=== PATIENT | male | born 1970 | race Hispanic/Latino ===

== ENCOUNTER 2017-12-24 10:34 | Emergency (ER) | payer BC ==
[2017-12-24 10:34] VITALS: BMI 28.5
== END 2017-12-24 11:25 | disposition left against medical advice (07) ==
LOC: ED 10:34
DX: Z02.89 Encounter for other administrative examinations (principal); Z48.02 Encounter for removal of sutures

== ENCOUNTER 2018-05-26 10:04 | Emergency (ER) | payer MEDICAID, OTHER ==
[2018-05-26 10:05] VITALS: BMI 28.5
--- NOTE | 2018-05-26 10:30 | ED PDOC ---
Arrival/HPI - General Historian: Patient - History of Present Illness Narrative History of Present Illness (Text): 05/26/18 10:25 47 year old male, with past medical history of hypertension, presents to the ED complaining of bilateral lower extremity edema and discomfort since 1 week. Patient informs worsening symptoms with palpation but denies any recent trauma or injury. As per patient, the presentation is similar to symptoms experienced 20 years ago but denies any further medical evaluation. Patient denies any other associated somatic complaints. Patient denies any fever, chills, nausea, vomiting, diarrhea, abdominal pain, chest pain, shortness of breath, changes in appetite, urinary symptoms, headache, dizziness, neck pain, back pain or any other complaints. PMD: NONE Time/Duration: 1 week Symptom Onset: Gradual Symptom Course: Unchanged Quality: Aching Activities at Onset: Light <Sury Norman - Last Filed: 05/26/18 17:02> <Salvador Servin - Last Filed: 05/26/18 17:13> - General Chief Complaint: Lower Extremity Problem/Injury Time Seen by Provider: 05/26/18 10:06 Past Medical History - Provider Review Nursing Documentation Reviewed: Yes - Infectious Disease Hx of Infectious Diseases: None - Tetanus Immunization Tetanus Immunization: Unknown - Cardiac Hx Cardiac Disorders: Yes Hx Hypertension: Yes - Pulmonary Hx Respiratory Disorders: No - Neurological Hx Neurological Disorder: Yes Hx Seizures: Yes - HEENT Hx HEENT Disorder: No - Renal Hx Renal Disorder: No - Endocrine/Metabolic Hx Endocrine Disorders: No - Hematological/Oncological Hx Blood Disorders: No Hx Blood Transfusions: No Hx Blood Transfusion Reaction: No - Integumentary Hx Dermatological Disorder: Yes Hx Cellulitis: Yes - Musculoskeletal/Rheumatological Hx Falls: Yes Hx Fractures: Yes (left ankle fx twice, r great toe fx, r 5th toe fx) - Gastrointestinal Hx Gastrointestinal Disorders: No - Genitourinary/Gynecological Hx Genitourinary Disorders: No - Psychiatric Hx Depression: No Hx Substance Use: No - Past Surgical History Past Surgical History: Non-Contributing - Surgical History Hx Cardiac Catheterization: Yes (with 1 stent placement) Hx Orthopedic Surgery: Yes Other/Comment: torn meniscus left knee and skin graft - Anesthesia Hx Anesthesia: Yes Hx Anesthesia Reactions: No Hx Malignant Hyperthermia: No - Suicidal Assessment Feels Threatened In Home Enviroment: No <Sury Norman - Last Filed: 05/26/18 17:02> Family/Social History - Physician Review Nursing Documentation Reviewed: Yes Family/Social History: Unknown Family HX Smoking Status: Never Smoked Hx Alcohol Use: No Hx Substance Use: No Hx Substance Use Treatment: No <Sury Norman Arnold - Last Filed: 05/26/18 17:02> Allergies/Home Meds <Sury Norman Arnold - Last Filed: 05/26/18 17:02> <GarethSalvador - Last Filed: 05/26/18 17:13> Allergies/Adverse Reactions: Allergies No Known Allergies Allergy (Verified 04/17/18 13:36) Home Medications: Home Meds Medication Instructions Recorded Confirmed RX: No Known Home Med 04/17/18 04/17/18 Review of Systems - Physician Review All systems were reviewed & negative as marked: Yes - Review of Systems Constitutional: absent: Fevers Respiratory: absent: SOB, Cough Cardiovascular: Edema (bilaterally lower extremity edema). absent: Chest Pain, MCHUGH Gastrointestinal: absent: Abdominal Pain, Diarrhea, Nausea, Vomiting Musculoskeletal: Other (bilateral lower extremity discomfort). absent: Back Pain, Neck Pain Skin: absent: Rash Neurological: absent: Headache, Dizziness Psychiatric: absent: Anxiety <Sury Norman T - Last Filed: 05/26/18 17:02> Physical Exam Vital Signs Reviewed: Yes Temperature: Afebrile Blood Pressure: Normal Pulse: Regular Respiratory Rate: Normal Appearance: Positive for: Well-Appearing, Non-Toxic, Comfortable Pain Distress: None Mental Status: Positive for: Alert and Oriented X 3 - Systems Exam Head: Present: Atraumatic, Normocephalic Mouth: Present: Moist Mucous Membranes Neck: Present: Normal Range of Motion Respiratory/Chest: Present: Clear to Auscultation, Good Air Exchange. No: Respiratory Distress, Accessory Muscle Use, Wheezes, Decreased Breath Sounds, Retracting, Rhonchi, Tachypneic Cardiovascular: Present: Regular Rate and Rhythm, Normal S1, S2. No: Murmurs Abdomen: No: Tenderness, Distention, Peritoneal Signs, Rebound, Guarding Back: Present: Normal Inspection Upper Extremity: Present: Normal Inspection. No: Cyanosis, Edema Lower Extremity: Present: Edema (2+ pitting edema ), CALF TENDERNESS, NORMAL PULSES, Normal ROM, Neurovascularly Intact, Capillary Refill < 2 s, Other (Sensation intact bilaterally ). No: Swelling, Erythema, Deformity, Temperature Abnormalties Neurological: Present: GCS=15, Speech Normal, Motor Func Grossly Intact, Normal Sensory Function, Gait Normal Skin: Present: Warm, Dry, Normal Color. No: Rashes Psychiatric: Present: Alert, Oriented x 3. No: Suicidal Ideation, Homicidal Ideation <Sury Norman - Last Filed: 05/26/18 17:02> Vital Signs Temp Pulse Resp BP Pulse Ox 05/26/18 13:38 99 05/26/18 13:26 137/80 05/26/18 12:16 88 18 129/80 99 05/26/18 10:24 98.2 F 96 H 18 130/89 99 <Salvador Servin - Last Filed: 05/26/18 17:13> Medical Decision Making ED Course and Treatment: 05/26/18 10:24 Impression: 47 year old male presents to the ED complaining of bilateral lower extremity swelling and discomfort. Plan: -- Labs -- Chest X-ray -- US of LE Progress Notes: 05/26/18 13:04 pt is non toxic well appearing; no distress. pt with hx of CHF. BNP 3120 which is greatly improved from last month at 10,000. cxr; wnl hgb;9.0 duplex; negative for dvt bilaterally. pt given PO lasix. advised patient of low hemoglobin and elevated BNP. 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 pt was advised that he must return if symptoms worsen,persist or if new symptoms develop. pt states he knows he has HIV and will f/u with the ID clinic [facility]. advised patient of severity of clinic. Patient verbalizes understanding of discharge instructions and need for immediate followup. all aspects of this case were discussed the attending of record. Impression: Pedal edema, anemia Follow-up with the primary care physician/clinic within the next 2 days Please Follow up with the Infectious disease clinic [facility]. Follow-up with the gimp buttonhole machine operator within the next 2 days Return immediately if symptoms worsen persist or if new concerning symptoms develop - RAD Interpretation Radiology Orders: 05/26/18 10:24 CHEST PORTABLE [RAD] Stat DUPLEX LOWER EXTRM VEIN BILAT [US] Stat <Sury Norman - Last Filed: 05/26/18 17:02> - Lab Interpretations Lab Results: 05/26/18 10:50 05/26/18 12:00 Lab Results 05/26/18 12:00: Sodium 139, Potassium 4.5, Chloride 102, Carbon Dioxide 27, Anion Gap 15, BUN 21, Creatinine 0.6 L, Est GFR ( Amer) > 60, Est GFR (Non-Af Amer) > 60, Random Glucose 85, Calcium 8.5, Total Bilirubin 0.5, AST 48, ALT 27, Alkaline Phosphatase 89, NT-Pro-B Natriuret Pep 3120 H, Total Protein 8.8 H, Albumin 3.5, Globulin 0.7, Albumin/Globulin Ratio 5.0 H 05/26/18 10:50: WBC 3.0 L, RBC 3.50, Hgb 9.0 L, Hct 29.3 L, MCV 83.7, MCH 25.7, MCHC 30.7 L, RDW 16.2 H, Plt Count 210, MPV 9.7, Gran % 55.4, Lymph % (Auto) 35.6 H, Murray % (Auto) 8.3 H, Eos % (Auto) 0.7 L, Baso % (Auto) 0.0, Gran # 1.68, Lymph # (Auto) 1.1 L, Murray # (Auto) 0.3, Eos # (Auto) 0.0, Baso # (Auto) 0.00 - RAD Interpretation Radiology Orders: 05/26/18 10:24 CHEST PORTABLE [RAD] Stat DUPLEX LOWER EXTRM VEIN BILAT [US] Stat - Medication Orders Current Medication Orders: Discontinued Medications Furosemide (Lasix) 20 mg PO STAT STA Stop: 05/26/18 12:59 Last Admin: 05/26/18 13:26 Dose: 20 mg MAR Blood Pressure Document 05/26/18 13:26 LEANN (Rec: 05/26/18 13:26 LEANN [id number]) Blood Pressure Blood Pressure (100/60-150/90) 137/80 <Salvador Servin - Last Filed: 05/26/18 17:13> - PA / BROOMMAKER / Resident Statement YARELY has reviewed & agrees with the documentation as recorded. / has examined the patient and agrees with the treatment plan. - Scribe Statement The provider has reviewed the documentation as recorded by the Humzaibe Sang Toscano. All medical record entries made by the Humzaibbob were at my direction and personally dictated by me. I have reviewed the chart and agree that the record accurately reflects my personal performance of the history, physical exam, medical decision making, and the department course for this patient. I have also personally directed, reviewed, and agree with the discharge instructions and di sposition. <Sury Norman - Last Filed: 05/26/18 17:02> - PA / BROOMMAKER / Resident Statement MD/ has reviewed & agrees with the documentation as recorded. <Salvador Servin - Last Filed: 05/26/18 17:13> Disposition/Present on Arrival - Present on Arrival Any Indicators Present on Arrival: No History of DVT/PE: No History of Uncontrolled Diabetes: No Urinary Catheter: No History of Decub. Ulcer: No History Surgical Site Infection Following: None - Disposition Have Diagnosis and Disposition been Completed?: Yes Disposition Time: 12:00 Patient Plan: Discharge <Sury Norman - Last Filed: 05/26/18 17:02> <Salvador Servin - Last Filed: 05/26/18 17:13> - Disposition Diagnosis: Pedal edema, Anemia Disposition: HOME/ ROUTINE Condition: GOOD Additional Instructions: Follow-up with the primary care physician/clinic within the next 2 days Please Follow up with the Infectious disease clinic [facility]. Follow-up with the gimp buttonhole machine operator within the next 2 days Return immediately if symptoms worsen persist or if new concerning symptoms develop Referrals: Joshua Majano MD [Staff Provider] - Follow up with primary Melvi Bustamante MD [Medical Doctor] - Follow up with primary [facility] [Outside] - Follow up with primary Johnathon Razo MD [Staff Provider] - Follow up with primary Forms: [employer] (Malawian)
[2018-05-26 10:31] VITALS: RESP 18; TEMP 98.2; O2SAT 99
[2018-05-26 10:59] LABS: EOS % 0.7 % (1.5-5.0); GRAN # 1.68 (1.4-6.5); GRAN % 55.4 % (50.0-68.0); LYMPH # 1.1 (1.2-3.4); LYMPH % 35.6 % (22.0-35.0); MEAN CELL VOLUME 83.7 fl (80.0-105.0); MEAN CORPUSCULAR HEMOGLOBIN 25.7 pg (25.0-35.0); MEAN CORPUSCULAR HGB CONC 30.7 g/dl (31.0-37.0); MEAN PLATELET VOLUME 9.7 fl (7.0-11.0); MONO # 0.3 (0.1-0.6); MONO % 8.3 % (1.0-6.0); RBC 3.5 10^6/uL (3.5-6.1); RED CELL DISTRIBUTION WIDTH 16.2 % (11.5-14.5)
--- NOTE | 2018-05-26 11:32 | US ---
HISTORY: Leg pain and swelling. Evaluate for DVT PHYSICIAN(S): Scott Sood MD. TECHNIQUE: Duplex sonography and color-flow Doppler with graded compression were used to evaluate the deep venous systems of both lower extremities. FINDINGS: The visualized deep venous systems of both lower extremities are sonographically normal and compressible. Normal wave forms and augmentation are seen. There is no sonographic evidence for deep venous thrombosis in the visualized segments of both lower extremities. IMPRESSION: No sonographic evidence for deep venous thrombosis in the visualized segments of both lower extremities.
--- NOTE | 2018-05-26 11:36 | RAD ---
Date of service: 05/26/2018 HISTORY: lower leg swelling COMPARISON: 03/19/2013 FINDINGS: LUNGS: No active pulmonary disease. PLEURA: No significant pleural effusion identified, no pneumothorax apparent. CARDIOVASCULAR: No acute findings Mild cardiomegaly no pulmonary vascular congestion. OSSEOUS STRUCTURES: No significant abnormalities. VISUALIZED UPPER ABDOMEN: Normal. OTHER FINDINGS: None. IMPRESSION: No active disease.
[2018-05-26 12:50] LABS: ALBUMIN 3.5 g/dL (3.0-4.8); BLOOD UREA NITROGEN 21 mg/dL (7-21); CALCIUM 8.5 mg/dL (8.4-10.5); GFR NON-AFRICAN AMERICAN > 60
[2018-05-26 12:51] LABS: ALT/SGPT 27 U/L (7-56); AST/SGOT 48 U/L (17-59); B-TYPE NATRIURETIC PEPTIDE 3120 pg/mL (0-450)
[2018-05-26 13:26] VITALS: BP 137/80
[2018-05-26 13:41] VITALS: PULSE 88
== END 2018-05-26 13:40 | disposition home or self-care (01) ==
LOC: ED 10:04
DX: R60.0 Localized edema (principal); D64.9 Anemia, unspecified; I10 Essential (primary) hypertension

== ENCOUNTER 2018-06-09 03:49 | Emergency (ER) | payer MEDICAID, OTHER ==
[2018-06-09 03:49] VITALS: BMI 28.5
[2018-06-09 04:01] VITALS: O2SAT 100
[2018-06-09 04:11] VITALS: PULSE 98; RESP 20; TEMP 97.4
[2018-06-09 04:34] VITALS: BP 138/98
--- NOTE | 2018-06-09 04:54 | ED PDOC ---
Arrival/HPI - General Chief Complaint: Lower Extremity Problem/Injury Time Seen by Provider: 06/09/18 03:57 Historian: Patient - History of Present Illness Narrative History of Present Illness (Text): 06/09/18 03:58 47 year old male, whose past medical history includes HIV, presents to the emergency department with red lower leg swelling, for 20 years. Patient states he was seen here 2 weeks ago for the the same symptoms. Patient states he was given Lasix, which he states he ran out of. Patient informs he is scheduled for an appointment with his infectious disease doctor for HIV medication. Patient denies any fever, cough, chest pain, shortness of breath, or any other complaints. Time/Duration: Other (Symptoms for 20 years) Past Medical History - Provider Review Nursing Documentation Reviewed: Yes - Infectious Disease Hx of Infectious Diseases: None - Tetanus Immunization Tetanus Immunization: Unknown - Cardiac Hx Cardiac Disorders: Yes Hx Hypertension: Yes - Pulmonary Hx Respiratory Disorders: No - Neurological Hx Neurological Disorder: Yes Hx Seizures: Yes - HEENT Hx HEENT Disorder: No - Renal Hx Renal Disorder: No - Endocrine/Metabolic Hx Endocrine Disorders: No - Hematological/Oncological Hx Blood Disorders: No Hx Blood Transfusions: No Hx Blood Transfusion Reaction: No - Integumentary Hx Dermatological Disorder: Yes Hx Cellulitis: Yes - Musculoskeletal/Rheumatological Hx Falls: Yes Hx Fractures: Yes (left ankle fx twice, r great toe fx, r 5th toe fx) - Gastrointestinal Hx Gastrointestinal Disorders: No - Genitourinary/Gynecological Hx Genitourinary Disorders: No - Psychiatric Hx Depression: No Hx Substance Use: No - Past Surgical History Past Surgical History: Non-Contributing - Surgical History Hx Cardiac Catheterization: Yes (with 1 stent placement) Hx Orthopedic Surgery: Yes Other/Comment: torn meniscus left knee and skin graft - Anesthesia Hx Anesthesia: Yes Hx Anesthesia Reactions: No Hx Malignant Hyperthermia: No - Suicidal Assessment Feels Threatened In Home Enviroment: No Family/Social History - Physician Review Nursing Documentation Reviewed: Yes Family/Social History: No Known Family HX Smoking Status: Never Smoked Hx Alcohol Use: Yes Frequency of alcohol use: Socially Hx Substance Use: No Hx Substance Use Treatment: No Allergies/Home Meds Allergies/Adverse Reactions: Allergies No Known Allergies Allergy (Verified 06/09/18 04:01) Review of Systems - Physician Review All systems were reviewed & negative as marked: Yes - Review of Systems Constitutional: absent: Fevers Respiratory: absent: SOB, Cough Cardiovascular: absent: Chest Pain Skin: Other (Bilateral Lower Ext Swelling and Redness) Physical Exam Vital Signs Reviewed: Yes Vital Signs Temp Pulse Resp BP Pulse Ox 06/09/18 04:34 138/98 H 06/09/18 04:10 97.4 F L 98 H 20 139/98 H 100 06/09/18 04:01 98.6 F 97 H 18 136/89 100 Temperature: Afebrile Blood Pressure: Normal Pulse: Tachycardic Respiratory Rate: Normal Appearance: Positive for: Well-Appearing, Non-Toxic, Comfortable Pain Distress: None Mental Status: Positive for: Alert and Oriented X 3 - Systems Exam Head: Present: Atraumatic, Normocephalic Pupils: Present: PERRL Extroacular Muscles: Present: EOMI Conjunctiva: Present: Normal Mouth: Present: Moist Mucous Membranes Neck: Present: Normal Range of Motion Respiratory/Chest: Present: Clear to Auscultation, Good Air Exchange. No: Respiratory Distress, Accessory Muscle Use Cardiovascular: Present: Regular Rate and Rhythm, Normal S1, S2. No: Murmurs Abdomen: No: Tenderness, Distention, Peritoneal Signs Back: Present: Normal Inspection Upper Extremity: Present: Normal Inspection. No: Cyanosis, Edema Lower Extremity: Present: Edema (1+ pitting edema bilaterally) Neurological: Present: GCS=15, CN II-XII Intact, Speech Normal Skin: Present: Warm, Dry, Normal Color. No: Rashes Psychiatric: Present: Alert, Oriented x 3, Normal Insight, Normal Concentration Medical Decision Making ED Course and Treatment: 06/09/18 04:03 Impression: 47 year old male presents with leg swelling and redness. Plan: -- Lasix -- Reassess and disposition Prior Visits: Notes and results from previous visits were reviewed. Progress Notes: - Medication Orders Current Medication Orders: Discontinued Medications Furosemide (Lasix) 20 mg PO STAT STA Stop: 06/09/18 04:25 Last Admin: 06/09/18 04:34 Dose: 20 mg MAR Blood Pressure Document 06/09/18 04:34 SS (Rec: 06/09/18 04:34 SS [facility] [id number]) Blood Pressure Blood Pressure (100/60-150/90) 138/98 - Scribe Statement The provider has reviewed the documentation as recorded by the Scribe Scott Osbaldo Provider Petra Attestation: All medical record entries made by the Petra were at my direction and personally dictated by me. I have reviewed the chart and agree that the record accurately reflects my personal performance of the history, physical exam, medical decision making, and the department course for this patient. I have also personally directed, reviewed, and agree with the discharge instructions and disposition. Disposition/Present on Arrival - Present on Arrival Any Indicators Present on Arrival: No History of DVT/PE: No History of Uncontrolled Diabetes: No Urinary Catheter: No History of Decub. Ulcer: No History Surgical Site Infection Following: None - Disposition Have Diagnosis and Disposition been Completed?: Yes Diagnosis: Leg edema Disposition: HOME/ ROUTINE Disposition Time: 04:20 Patient Problems: Current Active Problems Problem Status Onset Leg edema Acute Condition: GOOD Discharge Instructions (ExitCare): Dependent Edema (DC) Additional Instructions: BIBIANA ERNST, thank you for letting us take care of you today. The emergency medical care you received today was directed at your acute symptoms. If you were prescribed any medication, please fill it and take as directed. It may take several days for your symptoms to resolve. Return to the Emergency Department if your symptoms worsen, do not improve, or if you have any other problems. Please contact your doctor or call one of the physicians/clinics you have been referred to that are listed on the Patient Visit Information form that is included in your discharge packet. Bring any paperwork you were given at discharge with you along with any medications you are taking to your follow up visit. Our treatment cannot replace ongoing medical care by a primary care provider outside of the emergency department. Thank you for allowing the [facility] team to be part of your care today. Follow up with your primary care doctor and the infectious disease doctor as scheduled for re-evaluation and further management. Prescriptions: Furosemide [Lasix] 20 mg PO DAILY #14 tab Forms: [employer] (Greek)
[2018-06-09] MEDS ORDERED: Dextrose 50% SYRINGE Inj (50 ml) ONE (10:23)
== END 2018-06-09 06:10 | disposition home or self-care (01) ==
LOC: ED 03:49
DX: R60.0 Localized edema (principal)

== ENCOUNTER 2018-06-10 02:29 | Emergency (ER) | payer MEDICAID ==
[2018-06-10 02:29] VITALS: BMI 28.5
[2018-06-10 02:45] VITALS: TEMP 97.4
--- NOTE | 2018-06-10 03:14 | ED PDOC ---
Arrival/HPI - General Historian: Patient - History of Present Illness Narrative History of Present Illness (Text): 06/10/18 03:07 47 y o male past medical history of hypertension, HIV, presents complaining b/l lower leg swelling x 2 weeks. Pt was recently seen in [facility] department 24 hrs earlier for similar chief complaint. When I asked pt about that visit, pt stated he did not recall being in this ER 24 hrs ago, stated that he was in the ER several days ago for this issue. States he took his Furosemide for the last 2 days because his legs were swelling. He states that he got his prescription for Lasix 2 weeks ago in the Emergency room Pt states he came to the Emergency department because he was trying to get to [place] and could not because the buses stopped running tonight. Pt states he was on [employer] [place] well trying to get to [place] and states he was kicked off the train. Was brought in by ambulance, but was observed walking around Emergency department prior to being examined without concerns/pain. When questioned initially, pt stated that he only had b/l lower leg swelling without pain, but then proceeded to change his story 10 mins later and stated that he had pain. Denies color changes or rash to affected leg. Denies headache, lightheadedness/dizziness, weakness, chest pain, sob, nausea, vomiting, diarrhea, constipation, abd pain, urinary complaints, or other symptoms. Past medical history: hypertension, HIV Past surg hx: denies Allergies: NKDA Meds: Furosemide 20 mg PO daily Fam hx: denies, noncontributory Soc hx: denies smoking, EtOH, or illicit drug use; per chart review, pt has hx cocaine abuse PMD: states he sees PCP in [facility] (does not remember name), states last saw him 3 mos ago <Mirza Arroyo - Last Filed: 06/10/18 03:28> - History of Present Illness Time/Duration: Other (2 weeks) Symptom Onset: Gradual Symptom Course: Unchanged Activities at Onset: Light <Edmund Benavides - Last Filed: 06/10/18 04:02> - General Chief Complaint: Lower Extremity Problem/Injury Past Medical History - Infectious Disease Hx of Infectious Diseases: None - Tetanus Immunization Tetanus Immunization: Unknown - Cardiac Hx Cardiac Disorders: Yes Hx Hypertension: Yes - Pulmonary Hx Respiratory Disorders: No - Neurological Hx Neurological Disorder: Yes Hx Seizures: Yes - HEENT Hx HEENT Disorder: No - Renal Hx Renal Disorder: No - Endocrine/Metabolic Hx Endocrine Disorders: No - Hematological/Oncological Hx Blood Disorders: No Hx Blood Transfusions: No Hx Blood Transfusion Reaction: No - Integumentary Hx Dermatological Disorder: Yes Hx Cellulitis: Yes - Musculoskeletal/Rheumatological Hx Musculoskeletal Disorders: Yes Hx Falls: Yes Hx Fractures: Yes (left ankle fx twice, r great toe fx, r 5th toe fx) - Gastrointestinal Hx Gastrointestinal Disorders: No - Genitourinary/Gynecological Hx Genitourinary Disorders: No - Psychiatric Hx Depression: No Hx Substance Use: No - Past Surgical History Past Surgical History: Non-Contributing - Surgical History Hx Cardiac Catheterization: Yes (with 1 stent placement) Hx Orthopedic Surgery: Yes Other/Comment: torn meniscus left knee and skin graft - Anesthesia Hx Anesthesia: Yes Hx Anesthesia Reactions: No Hx Malignant Hyperthermia: No - Suicidal Assessment Feels Threatened In Home Enviroment: No <Mirza Arroyo - Last Filed: 06/10/18 03:28> - Provider Review Nursing Documentation Reviewed: Yes <Edmund Benavides - Last Filed: 06/10/18 04:02> Family/Social History Family/Social History: No Known Family HX Smoking Status: Never Smoked Hx Alcohol Use: Yes Frequency of alcohol use: Socially Hx Substance Use: No Hx Substance Use Treatment: No <Mirza Arroyo - Last Filed: 06/10/18 03:28> - Physician Review Nursing Documentation Reviewed: Yes <Edmund Benavides - Last Filed: 06/10/18 04:02> Allergies/Home Meds <Mirza Arroyo - Last Filed: 06/10/18 03:28> <Edmund Benavides - Last Filed: 06/10/18 04:02> Allergies/Adverse Reactions: Allergies No Known Allergies Allergy (Verified 06/09/18 04:01) Home Medications: Home Meds Medication Instructions Recorded Confirmed Naproxen Sodium [Aleve] 220 mg PO Q6 PRN 06/10/18 06/10/18 Review of Systems - Review of Systems Constitutional: absent: Weight Change, Fevers, Night Sweats Eyes: absent: Vision Changes Respiratory: absent: SOB, Cough, Wheezing Cardiovascular: Edema. absent: Chest Pain, Palpitations, Calf Pain, MCHUGH, Orthopnea, Syncope Gastrointestinal: absent: Abdominal Pain, Stool Changes, Constipation, Diarrhea, Nausea, Vomiting Musculoskeletal: Joint Swelling. absent: Back Pain, Myalgias Skin: absent: Rash, Pruritis Neurological: absent: Headache, Dizziness, Gait Changes <DinaMirza - Last Filed: 06/10/18 03:28> - Physician Review All systems were reviewed & negative as marked: Yes <Edmund Benavides - Last Filed: 06/10/18 04:02> Physical Exam Vital Signs Reviewed: Yes Vital Signs Temp Pulse Resp BP Pulse Ox 06/10/18 02:42 97.4 F L 100 H 18 151/102 H 93 L Temperature: Afebrile Blood Pressure: Hypertensive Pulse: Tachycardic Respiratory Rate: Normal Appearance: Positive for: Well-Appearing, Non-Toxic, Comfortable Pain Distress: None Mental Status: Positive for: Alert and Oriented X 3 - Systems Exam Head: Present: Atraumatic, Normocephalic Pupils: Present: PERRL Extroacular Muscles: Present: EOMI Conjunctiva: Present: Normal Mouth: Present: Moist Mucous Membranes Neck: Present: Normal Range of Motion. No: Paraspinal Tenderness, JVD, Lymp hadenopathy Respiratory/Chest: Present: Clear to Auscultation, Good Air Exchange. No: Respiratory Distress, Accessory Muscle Use, Wheezes, Rales, Rhonchi Cardiovascular: Present: Regular Rate and Rhythm, Normal S1, S2. No: Murmurs, Rub, Gallop Abdomen: Present: Normal Bowel Sounds. No: Tenderness, Distention, Rebound, Ma ss/Organomegaly Lower Extremity: Present: Edema (1+ pitting edema b/l), NORMAL PULSES, Normal ROM. No: CALF TENDERNESS, Cyanosis, Keyanna's Sign, Erythema Neurological: Present: GCS=15, CN II-XII Intact, Speech Normal, Motor Func Grossly Intact, Normal Sensory Function, Normal Cerebellar Funct, Norm Deep Tendon Reflexes, Gait Normal Skin: Present: Warm, Dry, Normal Color. No: Rashes Psychiatric: Present: Alert, Oriented x 3 <DinaMirza - Last Filed: 06/10/18 03:28> Vital Signs Temp Pulse Resp BP Pulse Ox 06/10/18 02:42 97.4 F L 100 H 18 151/102 H 93 L <Edmund Benavides Last Filed: 06/10/18 04:02> Medical Decision Making ED Course and Treatment: 06/10/18 03:17 Discussed with pt that b/l LE edema is likely a chronic issue, instructed pt that he needs to take his Lasix daily even when he does not have LE edema. Pt medically stable for discharge to home. Instructed pt that he needs to follow regularly with his PCP for blood pressure checks and management of his LE edema. Per chart review, pt stated in prior encounter that he has had LE edema for 20 years. Reviewed prior Emergency department encounters. Pt has prescription of Lasix recently refilled by Emergency department staff in prior encounter. <Mirza Arroyo - Last Filed: 06/10/18 03:28> ED Course and Treatment: Patient Seen with Provider In agreement with resident note which contains more details about the patient. Patient seen and evaluated with resident. Came up with plan and treatment together. 47 year old male presents complaining of bilateral lower leg swelling 2 weeks ago. Patient was seen yesterday for similar complaints, but does not recall. Plan: -- Disposition <Edmund Benavides - Last Filed: 06/10/18 04:02> - PA / KITCHEN STEWARDESS / Resident Statement MD/ has reviewed & agrees with the documentation as recorded. MD/DO has examined the patient and agrees with the treatment plan. - Scribe Statement The provider has reviewed the documentation as recorded by the Petra Stein Provider Scribe Attestation: All medical record entries made by the Petra were at my direction and personally dictated by me. I have reviewed the chart and agree that the record accurately reflects my personal performance of the history, physical exam, medical decision making, and the department course for this patient. I have also personally directed, reviewed, and agree with the discharge instructions and disposition. <Edmund Benavides - Last Filed: 06/10/18 04:02> Disposition/Present on Arrival - Present on Arrival Any Indicators Present on Arrival: No History of DVT/PE: No History of Uncontrolled Diabetes: No Urinary Catheter: No History of Decub. Ulcer: No History Surgical Site Infection Following: None - Disposition Have Diagnosis and Disposition been Completed?: Yes Disposition Time: 03:20 Patient Plan: Discharge <Mirza Arroyo - Last Filed: 06/10/18 03:28> <Edmund Benavides - Last Filed: 06/10/18 04:02> - Disposition Diagnosis: Bilateral lower extremity edema Disposition: HOME/ ROUTINE Patient Problems: Current Active Problems Problem Status Onset Bilateral lower extremity edema Acute Condition: GOOD Discharge Instructions (ExitCare): Dependent Edema (DC) Print Language: LATVIAN Additional Instructions: Please follow-up with [facility] (Dr. Bustamante) within 2-3 days of hospital discharge. Please resume home medication (Furosemide 20 mg daily); take medication even when you do not have LE edema unless instructed by your doctor. Should symptoms recur or worsen, please call your primary care physician or report to your nearest emergency department. Referrals: Melvi Bustamante MD [Medical Doctor] - Follow up with primary Forms: Melon (Swiss)
[2018-06-10 04:21] VITALS: BP 149/89; PULSE 88; RESP 16; O2SAT 97
== END 2018-06-10 04:19 | disposition home or self-care (01) ==
LOC: ED 02:29
DX: R60.0 Localized edema (principal)

== ENCOUNTER 2018-07-30 02:17 | Observation (INO) | payer MEDICAID, BC ==
[2018-07-30 02:18] VITALS: BMI 25.0
--- NOTE | 2018-07-30 02:28 | ED PDOC ---
Arrival/HPI - General Time Seen by Provider: 07/30/18 02:19 Historian: Patient - History of Present Illness Narrative History of Present Illness (Text): 07/30/18 02:27 Michael Hines is a 47 year old male, whose past medical history includes hypertension and HIV, who presents to the emergency department complaining of nausea and vomiting. Patient states he had nausea, vomiting, and diarrhea earlier in the day, which resolved on their own, but he wanted was concerned and came in for further evaluation. Patient was seen at [facility] twice yesterday for similar symptoms and discharged. Patient denies any somatic complaints currently. Past Medical History - Provider Review Nursing Documentation Reviewed: Yes - Infectious Disease Hx of Infectious Diseases: None - Tetanus Immunization Tetanus Immunization: Unknown - Cardiac Hx Coronary Artery Disease: Yes Hx Congestive Heart Failure: Yes Hx Hypertension: Yes - Pulmonary Hx Bronchitis: Yes Hx Pneumonia: Yes - Neurological Hx Seizures: Yes - HEENT Hx HEENT Disorder: No - Renal Hx Renal Disorder: No - Endocrine/Metabolic Hx Endocrine Disorders: No - Hematological/Oncological Hx Blood Disorders: Yes - Integumentary Hx Dermatological Disorder: Yes Hx Cellulitis: Yes - Musculoskeletal/Rheumatological Hx Fractures: Yes (left ankle fx twice, r great toe fx, r 5th toe fx) - Gastrointestinal Hx Gastrointestinal Disorders: No - Genitourinary/Gynecological Hx Genitourinary Disorders: No - Psychiatric Hx Depression: No Hx Substance Use: Yes (Cocaine/marijuana in the past.) - Past Surgical History Past Surgical History: Non-Contributing - Surgical History Hx Cardiac Catheterization: Yes (with 1 stent placement) Hx Orthopedic Surgery: Yes Other/Comment: torn meniscus left knee and skin graft - Anesthesia Hx Anesthesia: Yes Hx Anesthesia Reactions: No Hx Malignant Hyperthermia: No - Suicidal Assessment Feels Threatened In Home Enviroment: No Family/Social History - Physician Review Nursing Documentation Reviewed: Yes Family/Social History: Unknown Family HX Smoking Status: Never Smoked Hx Alcohol Use: Yes Hx Substance Use: Yes (Cocaine/marijuana in the past.) Hx Substance Use Treatment: No Allergies/Home Meds Allergies/Adverse Reactions: Allergies No Known Allergies Allergy (Verified 07/30/18 02:25) Review of Systems - Physician Review All systems were reviewed & negative as marked: Yes - Review of Systems Constitutional: Normal. absent: Fevers Eyes: Normal ENT: Normal Respiratory: Normal. absent: SOB, Cough Cardiovascular: Normal. absent: Chest Pain Gastrointestinal: Diarrhea, Nausea, Vomiting Genitourinary Male: Normal. absent: Dysuria, Frequency, Hematuria, Urinary Output Changes Musculoskeletal: Normal. absent: Back Pain, Neck Pain Skin: Normal. absent: Rash Neurological: Normal. absent: Headache, Dizziness Endocrine: Normal Hemo/Lymphatic: Normal Psychiatric: Normal Physical Exam Vital Signs Reviewed: Yes Temperature: Afebrile Blood Pressure: Normal Pulse: Regular Respiratory Rate: Normal Appearance: Positive for: Well-Appearing, Non-Toxic, Comfortable Pain Distress: None Mental Status: Positive for: Alert and Oriented X 3 - Systems Exam Head: Present: Atraumatic, Normocephalic Pupils: Present: PERRL Extroacular Muscles: Present: EOMI Conjunctiva: Present: Normal Mouth: Present: Moist Mucous Membranes Neck: Present: Normal Range of Motion Respiratory/Chest: Present: Clear to Auscultation, Good Air Exchange. No: Respiratory Distress, Accessory Muscle Use Cardiovascular: Present: Regular Rate and Rhythm, Normal S1, S2. No: Murmurs Abdomen: No: Tenderness, Distention, Peritoneal Signs Back: Present: Normal Inspection Upper Extremity: Present: Normal Inspection. No: Cyanosis, Edema Lower Extremity: Present: Normal Inspection. No: Edema Neurological: Present: GCS=15, CN II-XII Intact, Speech Normal Skin: Present: Warm, Dry, Normal Color. No: Rashes Psychiatric: Present: Alert, Oriented x 3, Normal Insight, Normal Concentration Medical Decision Making ED Course and Treatment: 07/30/18 02:27 Impression: 47 year old male complaining of nausea, vomiting, and diarrhea. Plan: -- EKG -- CXR -- Labs, cardiac enzymes, amylase, lipase -- UA -- IV fluids -- Reassess and disposition Prior Visits: Notes and results from previous visits were reviewed. Progress Notes: Reviewed EKG, NSR at 87 bpm[address] Non-specific ST/T wave changes. 07/30/18 04:25 CXR reviewed, shows no acute processes. 07/30/18 04:30 Case discussed with medical diagnostic radiographer director of consumer marketing, who is aware and agrees with plan. 07/30/18 04:[address] Black, who is aware and agrees with plan. Accepts pt in to hospitalist service. Pt will go to [facility] observation for dehydration. - Lab Interpretations I have reviewed the lab results: Yes - RAD Interpretation Operations General Agent: ED Physician - EKG Interpretation Interpreted by ED Physician: Yes Type: 12 lead EKG - Scribe Statement The provider has reviewed the documentation as recorded by the Petra Funez Provider Scribe Attestation: All medical record entries made by the Scribe were at my direction and personally dictated by me. I have reviewed the chart and agree that the record accurately reflects my personal performance of the history, physical exam, medical decision making, and the department course for this patient. I have also personally directed, reviewed, and agree with the discharge instructions and disposition. Disposition/Present on Arrival - Present on Arrival Any Indicators Present on Arrival: No History of DVT/PE: No History of Uncontrolled Diabetes: No Urinary Catheter: No History Surgical Site Infection Following: None - Disposition Have Diagnosis and Disposition been Completed?: Yes Diagnosis: Dehydration Disposition: HOSPITALIZED Disposition Time: 04:25 Condition: GOOD
[2018-07-30] MEDS ORDERED: Sodium Chloride 0.9% 1,000 ML IV SCH ×3 (02:30→09:45)
[2018-07-30 04:16] LABS: INR 1.01; PARTIAL THROMBOPLASTIN TIME 34.3 Seconds (25.1-36.5); PROTHROMBIN TIME 11.5 SECONDS (9.4-12.5)
[2018-07-30 04:18] LABS: BASO % 0.2 % (0.0-3.0); EOS % 1.2 % (1.5-5.0); GRAN # 2.27 (1.4-6.5); GRAN % 53.3 % (50.0-68.0); HEMOGLOBIN 9.1 g/dL (14.0-18.0); LYMPH % 39.4 % (22.0-35.0); MEAN CELL VOLUME 82.8 fl (80.0-105.0); MEAN CORPUSCULAR HEMOGLOBIN 24.4 pg (25.0-35.0); MEAN CORPUSCULAR HGB CONC 29.4 g/dl (31.0-37.0); MEAN PLATELET VOLUME 10.1 fl (7.0-11.0); MONO % 5.9 % (1.0-6.0); RBC 3.73 10^6/uL (3.5-6.1); RED CELL DISTRIBUTION WIDTH 16.9 % (11.5-14.5); WHITE BLOOD COUNT 4.3 10^3/uL (4.5-11.0)
[2018-07-30 04:19] LABS: BASO # 0.01 K/mm3 (0.0-2.0); EOS # 0.1 (0.0-0.7); LYMPH # 1.7 (1.2-3.4); MONO # 0.3 (0.1-0.6)
[2018-07-30 04:20] LABS: ALB/GLOB RATIO 0.7 (1.1-1.8); ALBUMIN 3.9 g/dL (3.0-4.8); ALT/SGPT 37 U/L (7-56); AMYLASE 105 U/L (35-125); AST/SGOT 57 U/L (17-59); BLOOD UREA NITROGEN 55 mg/dL (7-21); CALCIUM 9.4 mg/dL (8.4-10.5); GFR NON-AFRICAN AMERICAN > 60; LIPASE 430 U/L (23-300)
[2018-07-30 04:31] LABS: TROPONIN I 0.01 ng/mL
--- NOTE | 2018-07-30 04:56 | CP.PCM.HP ---
History of Present Illness - History of Present Illness History of Present Illness: PGY-[address] H&P for [address] Black CC: Nausea, vomiting, and diarrhea Michael Hines is a 47 year old male, whose past medical history includes h ypertension and HIV, who presents to the emergency department complaining of nausea and vomiting. Patient states he had nausea, vomiting, and diarrhea earlier in the day, which resolved on their own, but he wanted was concerned and came in for further evaluation. Patient was seen at [facility] twice yesterday for similar symptoms and discharged. Patient denies any somatic complaints currently. 12 system ROS reviewed and negative except mentioned in HPI. PMHx: uncontrolled HTN, seizures, multiple fractures (left ankle, right great toe, right 5th toe) SurgHx: torn meniscus left knee and skin graft FMHx: denies SocHx: cocaine abuse, homeless (stays at alf) Medications: no home meds Allergies: NKDA PMD: none Past Patient History - Infectious Disease Hx of Infectious Diseases: None - Tetanus Immunizations Tetanus Immunization: Unknown - Past Social History Smoking Status: Never Smoked - CARDIAC Hx Congestive Heart Failure: Yes Hx Hypertension: Yes - PULMONARY Hx Bronchitis: Yes Hx Pneumonia: Yes - NEUROLOGICAL Hx Seizures: Yes - HEENT Hx HEENT Problems: No - RENAL Hx Chronic Kidney Disease: No - ENDOCRINE/METABOLIC Hx Endocrine Disorders: No - HEMATOLOGICAL/ONCOLOGICAL Hx Blood Disorders: Yes - INTEGUMENTARY Hx Dermatological Problems: Yes Hx Cellulitis: Yes - MUSCULOSKELETAL/RHEUMATOLOGICAL Hx Fractures: Yes (left ankle fx twice, r great toe fx, r 5th toe fx) - GASTROINTESTINAL Hx Gastrointestinal Disorders: No - GENITOURINARY/GYNECOLOGICAL Hx Genitourinary Disorders: No - PSYCHIATRIC Hx Depression: No Hx Substance Use: Yes (Cocaine/marijuana in the past.) - SURGICAL HISTORY Hx Cardiac Catheterization: Yes (with 1 stent placement) Hx Orthopedic Surgery: Yes Other/Comment: torn meniscus left knee and skin graft - ANESTHESIA Hx Anesthesia: Yes Hx Anesthesia Reactions: No Hx Malignant Hyperthermia: No Meds Allergies/Adverse Reactions: Allergies Allergy/AdvReac Type Severity Reaction Status Date / Time No Known Allergies Allergy Verified 07/30/18 02:25 Results - Labs Result Diagrams: 07/30/18 03:42 07/30/18 03:42 Labs: Laboratory Results - last 24 hr 07/30/18 07/30/18 07/30/18 03:42 03:42 03:42 WBC 4.3 L D RBC 3.73 Hgb 9.1 L Hct 30.9 L MCV 82.8 MCH 24.4 L MCHC 29.4 L RDW 16.9 H Plt Count 220 MPV 10.1 Gran % 53.3 Lymph % (Auto) 39.4 H Ripley % (Auto) 5.9 Eos % (Auto) 1.2 L Baso % (Auto) 0.2 Gran # 2.27 Lymph # (Auto) 1.7 [place] # (Auto) 0.3 Eos # (Auto) 0.1 Baso # (Auto) 0.01 PT 11.5 INR 1.01 APTT 34.3 Sodium 142 Potassium 5.2 H Chloride 105 Carbon Dioxide 31 Anion Gap 11 BUN 55 H Creatinine 1.2 Est GFR ( Amer) > 60 Est GFR (Non-Af Amer) > 60 Random Glucose 98 Calcium 9.4 Total Bilirubin 0.4 AST 57 ALT 37 Alkaline Phosphatase 111 Lactate Dehydrogenase 381 Total Creatine Kinase 62 Troponin I 0.01 Total Protein 9.1 H Albumin 3.9 Globulin 5.3 Albumin/Globulin Ratio 0.7 L Amylase 105 Lipase 430 H
--- NOTE | 2018-07-30 05:44 | CP.PCM.HP ---
<Harjit Montiel - Last Filed: 07/30/18 07:22> History of Present Illness - History of Present Illness History of Present Illness: Torito Montiel PGY2 - H&P for Dr. Black and Hospitalist Service CC: Dehydration HPI: 47 year old male with past medical history of HTN and HIV who presented to [facility] ED with complaints of nausea and vomiting. Patient reports nausea, vomiting, diarrhea beginning earlier in the day which has resolved on its own. Denies hematemesis, dark coffee ground emesis, bloody bowel movements, multiple day history of GI losses. He was evaluated twice yesterday at [facility]. Patient was given hydration and discharged from the ED. Patient PMH: HTN, CAD, ?CHF, Seizures, Hx of Pneumonia, Bronchitis, Multiple fractures including left ankle x2, Right great toe and right fifth toe PSH: Left knee torn meniscus repair FMH: Denies SOCHX: ALL: NKDA MEDS: Denies Present on Admission - Present on Admission Any Indicators Present on Admission: No Review of Systems - Review of Systems All systems: reviewed and no additional remarkable complaints except (as mentioned in HPI) Past Patient History - Infectious Disease Hx of Infectious Diseases: None - Tetanus Immunizations Tetanus Immunization: Unknown - Past Social History Smoking Status: Never Smoked - CARDIAC Hx Congestive Heart Failure: Yes Hx Hypertension: Yes - PULMONARY Hx Bronchitis: Yes Hx Pneumonia: Yes - NEUROLOGICAL Hx Seizures: Yes - HEENT Hx HEENT Problems: No - RENAL Hx Chronic Kidney Disease: No - ENDOCRINE/METABOLIC Hx Endocrine Disorders: No - HEMATOLOGICAL/ONCOLOGICAL Hx Blood Disorders: Yes - INTEGUMENTARY Hx Dermatological Problems: Yes Hx Cellulitis: Yes - MUSCULOSKELETAL/RHEUMATOLOGICAL Hx Fractures: Yes (left ankle fx twice, r great toe fx, r 5th toe fx) - GASTROINTESTINAL Hx Gastrointestinal Disorders: No - GENITOURINARY/GYNECOLOGICAL Hx Genitourinary Disorders: No - PSYCHIATRIC Hx Depression: No Hx Substance Use: Yes (Cocaine/marijuana in the past.) - SURGICAL HISTORY Hx Cardiac Catheterization: Yes (with 1 stent placement) Hx Orthopedic Surgery: Yes Other/Comment: torn meniscus left knee and skin graft - ANESTHESIA Hx Anesthesia: Yes Hx Anesthesia Reactions: No Hx Malignant Hyperthermia: No Meds Allergies/Adverse Reactions: Allergies Allergy/AdvReac Type Severity Reaction Status Date / Time No Known Allergies Allergy Verified 08/04/18 19:20 Physical Exam - Constitutional Appears: Non-toxic, No Acute Distress, Unkempt - Head Exam Head Exam: ATRAUMATIC, NORMAL INSPECTION, NORMOCEPHALIC - Eye Exam Eye Exam: EOMI, PERRL - ENT Exam ENT Exam: Mucous Membranes Dry - Neck Exam Neck exam: Positive for: Full Rom - Respiratory Exam Respiratory Exam: Clear to Auscultation Bilateral, NORMAL BREATHING PATTERN. absent: Rhonchi, Wheezes - Cardiovascular Exam Cardiovascular Exam: Tachycardia, REGULAR RHYTHM, +S1, +S2 - GI/Abdominal Exam GI & Abdominal Exam: Normal Bowel Sounds, Soft. absent: Distended, Firm, Guarding, Tenderness - Extremities Exam Extremities exam: Positive for: pedal pulses present. Negative for: pedal edema, tenderness - Back Exam Back exam: absent: CVA tenderness (L), CVA tenderness (R) - Neurological Exam Neurological exam: Alert, CN II-XII Intact, Oriented x3 Additional comments: motor and sensory grossly intact - Psychiatric Exam Psychiatric exam: Normal Affect, Normal Mood - Skin Skin Exam: Dry, Intact Results - Labs Result Diagrams: 07/30/18 03:42 07/30/18 03:42 Labs: Laboratory Results - last 24 hr 07/30/18 07/30/18 07/30/18 03:42 03:42 03:42 WBC 4.3 L D RBC 3.73 Hgb 9.1 L Hct 30.9 L MCV 82.8 MCH 24.4 L MCHC 29.4 L RDW 16.9 H Plt Count 220 MPV 10.1 Gran % 53.3 Lymph % (Auto) 39.[address] [place] % (Auto) 5.9 Eos % (Auto) 1.2 L Baso % (Auto) 0.2 Gran # 2.27 Lymph # (Auto) 1.7 [place] # (Auto) 0.3 Eos # (Auto) 0.1 Baso # (Auto) 0.01 PT 11.5 INR 1.01 APTT 34.3 Sodium 142 Potassium 5.2 H Chloride 105 Carbon Dioxide 31 Anion Gap 11 BUN 55 H Creatinine 1.2 Est GFR ( Amer) > 60 Est GFR (Non-Af Amer) > 60 Random Glucose 98 Calcium 9.4 Total Bilirubin 0.4 AST 57 ALT 37 Alkaline Phosphatase 111 Lactate Dehydrogenase 381 Total Creatine Kinase 62 Troponin I 0.01 Total Protein 9.1 H Albumin 3.9 Globulin 5.3 Albumin/Globulin Ratio 0.7 L Amylase 105 Lipase 430 H Assessment & Plan - Assessment and Plan (Free Text) Assessment: 47 year old male with past medical history of HTN, seizure disorder, pneumonia, hx cocaine abuse and HIV last CD4 count of 51 in 04/2018 who presented to [facility] ED with complaints of GI losses Plan: Dehydration -Etiology likely secondary to poor oral intake and GI loss -EKG showing sinus tachycardia -Elevated BUN of 55 -IVF NS @200ml/hr HIV -Last CD4 count 51 in 04/2018 -Bactrim Q8 considering CD4 count 51 -ID consultation, Dr. Hammond, appreciate recs Hx of HTN - patient normotensive at this time - Continue to monitor Hx of Pneumonia -Afebrile, no leukocytosis -Previously dx in 04/2018, recieved IV abx -Bactrim ppx daily -CXR reviewed pending final report, no evidence of infiltrate appreciated Hx of Cocaine abuse -UDS pending -Avoid BB for hypertension DVT/GI PPX -Heparin 5000 units Q8H -HHD Patient seen, case and plan discussed with attending Dr. Black <Velma Black - Last Filed: 08/06/18 03:40> Results - Vital Signs Recent Vital Signs: Last Vital Signs Temp 98 F 07/31/18 14:00 Pulse 87 07/31/18 14:00 Resp 20 07/31/18 14:00 BP 122/74 07/31/18 14:00 Pulse Ox 97 07/31/18 14:00 - Labs Result Diagrams: 07/31/18 06:35 07/31/18 06:35 Attending/Attestation - Attestation I have personally seen and examined this patient.: Yes I have fully participated in the care of the patient.: Yes I have reviewed all pertinent clinical information: Yes Notes (Text): 08/06/18 03:39 Patient was seen when he was in the ER. Medical record was reviewed. Agree with history , physical examination, assessment and plan.
[2018-07-30 06:56] LABS: PH,URINE 6.5 (4.7-8.0); URINE BILIRUBIN NEGATIVE (NEGATIVE); URINE BLOOD NEGATIVE (NEGATIVE); URINE GLUCOSE (UA) NEGATIVE (NEGATIVE); URINE LEUKOCYTE ESTERASE NEGATIVE Leu/uL (NEGATIVE); URINE PROTEIN 30 mg/dL (<30 mg/dL); URINE UROBILINOGEN 0.2 E.U./dL (<1 E.U./dL)
[2018-07-30 06:59] LABS: URINE APPEARANCE CLEAR (CLEAR); URINE COLOR YELLOW (YELLOW)
[2018-07-30 07:14] LABS: URINE BACTERIA FEW /hpf
[2018-07-30 07:20] LABS: BARBITURATES, UR NEGATIVE (NEGATIVE); BENZODIAZEPINES, UR NEGATIVE (NEGATIVE); OPIATES, UR NEGATIVE (NEGATIVE); PHENCYCLIDINE, UR NEGATIVE (NEGATIVE)
[2018-07-30 08:24] VITALS: RESP 20
--- NOTE | 2018-07-30 09:27 | RAD ---
Date of service: 07/30/2018 HISTORY: cough COMPARISON: 05/26/2018 FINDINGS: LUNGS: No active pulmonary disease. PLEURA: No significant pleural effusion identified, no pneumothorax apparent. CARDIOVASCULAR: No aortic atherosclerotic calcification present. Normal cardiac size. No pulmonary vascular congestion. OSSEOUS STRUCTURES: No significant abnormalities. VISUALIZED UPPER ABDOMEN: Normal. OTHER FINDINGS: None. IMPRESSION: No active disease.
[2018-07-30] MEDS ORDERED: Tmp-Smz 400 mg-80 mg SS Tab PO SCH (12:00)
[2018-07-30 12:46] LABS: ALB/GLOB RATIO 0.7 (1.1-1.8); ALBUMIN 3.6 g/dL (3.0-4.8); ALT/SGPT 37 U/L (7-56); AST/SGOT 59 U/L (17-59); BLOOD UREA NITROGEN 40 mg/dL (7-21); CALCIUM 9.1 mg/dL (8.4-10.5); GFR NON-AFRICAN AMERICAN > 60
[2018-07-30] MEDS: Tmp-Smz 400 mg-80 mg SS Tab PO SCH ×2 (15:50→21:36)
--- NOTE | 2018-07-30 16:17 | CARD ---
APPROVED REPORT Date of service: 07/30/2018 EKG Measurement Heart [id number] <Conclusion> Normal sinus rhythm Possible Left atrial enlargement Nonspecific T wave abnormality Prolonged QT
--- NOTE | 2018-07-30 21:01 | CP.PCM.CON ---
History of Present Illness - History of Present Illness History of Present Illness: Infectious Diseae Consultation: July 30, 2018 47 yo male with PMHx of HTN and HIV. The patient presented with nausea, vomiting, and diarrhea. He was recently diagnosed with Influenza A. HIV diagnosis is relatively new. Unclear if the patient received treatment for Influenza. Chest X-ray with no acute disease. He has had numerous visits to the ER at [facility]3]. Urine Drug Screen negative. PMHx: HTN, CAD, CHF, HIV, Seizures, Bronchitis, Multiple fractures PSHx: Torn Meniscus repair of the Left knee Allergies: NKDA Social Hx: Claims no tobacco, EtOH Known history of Cocaine Abuse. Active Medications Aspirin (Aspirin Chewable) 81 mg PO DAILY [facility] Last Admin: 07/30/18 10:55 Dose: 81 mg Clopidogrel Bisulfate (Plavix) 75 mg PO DAILY [facility] Last Admin: 07/30/18 10:55 Dose: 75 mg Famotidine (Pepcid) 40 mg PO HS [facility] Heparin Sodium (Porcine) (Heparin) 5,000 units SC Q8 [facility]; Protocol Last Admin: 07/30/18 15:50 Dose: 5,000 units Sodium Chloride (Sodium Chloride 0.9%) 1,000 mls @ 100 mls/hr IV .Q10H [facility] Ondansetron HCl (Zofran Inj) 4 mg IVP Q6H PRN PRN Reason: Nausea/Vomiting Trimethoprim/Sulfamethoxazole (Bactrim Ss Tab) 1 tab PO Q8 [facility]; Protocol Last Admin: 07/30/18 15:50 Dose: 1 tab Family Hx: none given ROS: Nausea, vomiting, diarrhea. No chest pain, abdominal pain, melena, hematuria, hematemesis, hematochezia, depression, anxiety, diarrhea, headaches, dizziness. Past Patient History - Infectious Disease Hx of Infectious Diseases: None - Tetanus Immunizations Tetanus Immunization: Unknown - Past Social History Smoking Status: Never Smoked - CARDIAC Hx Peripheral Edema: Yes - PULMONARY Hx Pneumonia: Yes - NEUROLOGICAL Hx Seizures: Yes - HEENT Hx HEENT Problems: No - RENAL Hx Chronic Kidney Disease: No - ENDOCRINE/METABOLIC Hx Endocrine Disorders: No - HEMATOLOGICAL/ONCOLOGICAL Hx Human Immunodeficiency Virus (HIV): Yes - INTEGUMENTARY Hx Dermatological Problems: Yes Hx Cellulitis: Yes - MUSCULOSKELETAL/RHEUMATOLOGICAL Hx Back Pain: Yes Hx Falls: Yes Hx Fractures: Yes (Ankle, collar bone) - GASTROINTESTINAL Hx Diverticulitis: Yes - GENITOURINARY/GYNECOLOGICAL Hx Genitourinary Disorders: No - PSYCHIATRIC Hx Substance Use: No - SURGICAL HISTORY Other/Comment: Hiatal Hernia repair - ANESTHESIA Hx Anesthesia: Yes Hx Anesthesia Reactions: No Hx Malignant Hyperthermia: No Meds Allergies/Adverse Reactions: Allergies Allergy/AdvReac Type Severity Reaction Status Date / Time No Known Allergies Allergy Verified 07/30/18 02:25 - Medications Medications: Current Medications Aspirin (Aspirin Chewable) 81 mg PO DAILY [facility] Last Admin: 07/30/18 10:55 Dose: 81 mg Clopidogrel Bisulfate (Plavix) 75 mg PO DAILY [facility] Last Admin: 07/30/18 10:55 Dose: 75 mg Famotidine (Pepcid) 40 mg PO HS [facility] Heparin Sodium (Porcine) (Heparin) 5,000 units SC Q8 [facility]; Protocol Last Admin: 07/30/18 15:50 Dose: 5,000 units Sodium Chloride (Sodium Chloride 0.9%) 1,000 mls @ 100 mls/hr IV .Q10H [facility] Ondansetron HCl (Zofran Inj) 4 mg IVP Q6H PRN PRN Reason: Nausea/Vomiting Trimethoprim/Sulfamethoxazole (Bactrim Ss Tab) 1 tab PO Q8 [facility]; Protocol Last Admin: 07/30/18 15:50 Dose: 1 tab Physical Exam - Constitutional Appears: Non-toxic, No Acute Distress, Chronically Ill - Head Exam Head Exam: ATRAUMATIC, NORMOCEPHALIC - Eye Exam Eye Exam: EOMI, PERRL Pupil Exam: NORMAL ACCOMODATION, PERRL - ENT Exam ENT Exam: Mucous Membranes Dry - Neck Exam Neck exam: Positive for: Full Rom, Normal Inspection - Respiratory Exam Respiratory Exam: Clear to Auscultation Bilateral, NORMAL BREATHING PATTERN. absent: Rales, Rhonchi, Wheezes - Cardiovascular Exam Cardiovascular Exam: Tachycardia, RRR, +S1, +S2 - GI/Abdominal Exam GI & Abdominal Exam: Normal Bowel Sounds, Soft. absent: Distended, Tenderness - Extremities Exam Extremities exam: Negative for: joint swelling, pedal edema - Neurological Exam Neurological exam: Alert, CN II-XII Intact, Oriented x3 - Psychiatric Exam Psychiatric exam: Normal Affect, Normal Mood - Skin Skin Exam: Intact, Normal Color Results - Vital Signs Recent Vital Signs: Last Vital Signs Temp 97.9 F 01/17/19 14:00 Pulse 94 H 07/30/18 14:00 Resp 20 07/30/18 14:00 BP 111/74 07/30/18 14:00 Pulse Ox 95 07/30/18 14:00 - Labs Result Diagrams: 07/30/18 03:42 07/30/18 12:00 Labs: Laboratory Results - last 24 hr 07/30/18 07/30/18 07/30/18 03:42 03:42 03:42 WBC 4.3 L D RBC 3.73 Hgb 9.1 L Hct 30.9 L MCV 82.8 MCH 24.4 L MCHC 29.4 L RDW 16.9 H Plt Count 220 MPV 10.1 Gran % 53.3 Lymph % (Auto) 39.4 H [place] % (Auto) 5.9 Eos % (Auto) 1.2 L Baso % (Auto) 0.2 Gran # 2.27 Lymph # (Auto) 1.7 [place] # (Auto) 0.3 Eos # (Auto) 0.1 Baso # (Auto) 0.01 PT 11.5 INR 1.01 APTT 34.3 Sodium 142 Potassium 5.2 H Chloride 105 Carbon Dioxide 31 Anion Gap 11 BUN 55 H Creatinine 1.2 Est GFR ( Amer) > 60 Est GFR (Non-Af Amer) > 60 POC Glucose (mg/dL) Random Glucose 98 Calcium 9.4 Phosphorus Magnesium Total Bilirubin 0.4 AST 57 ALT 37 Alkaline Phosphatase 111 Lactate Dehydrogenase 381 Total Creatine Kinase 62 Troponin I 0.01 Total Protein 9.1 H Albumin 3.9 Globulin 5.3 Albumin/Globulin Ratio 0.7 L Amylase 105 Lipase 430 H Urine Color Urine Appearance Urine pH Ur Specific [place] Urine Protein Urine Glucose (UA) Urine Ketones Urine Blood Urine Nitrate Urine Bilirubin Urine Urobilinogen Ur Leukocyte Esterase Urine RBC Urine WBC Ur Epithelial Cells Urine Bacteria Urine Other Urine Opiates Screen Urine Methadone Screen Ur Barbiturates Screen Ur Phencyclidine Scrn Ur Amphetamines Screen U Benzodiazepines Scrn U Oth Cocaine Metabols U Cannabinoids Screen 07/30/18 07/30/18 07/30/18 03:42 05:45 06:15 WBC RBC Hgb Hct MCV MCH MCHC RDW Plt Count MPV Gran % Lymph % (Auto) [place] % (Auto) Eos % (Auto) Baso % (Auto) Gran # Lymph # (Auto) [place] # (Auto) Eos # (Auto) Baso # (Auto) PT INR APTT Sodium Potassium Chloride Carbon Dioxide Anion Gap BUN Creatinine Est GFR ( Amer) Est GFR (Non-Af Amer) POC Glucose (mg/dL) Random Glucose Calcium Phosphorus 4.7 H Magnesium 2.2 Total Bilirubin AST ALT Alkaline Phosphatase Lactate Dehydrogenase Total Creatine Kinase Troponin I Total Protein Albumin Globulin Albumin/Globulin Ratio Amylase Lipase Urine Color Yellow Urine Appearance Clear Urine pH 6.5 Ur Specific [place] 1.020 Urine Protein 30 H Urine Glucose (UA) Negative Urine Ketones Negative Urine Blood Negative Urine Nitrate Negative Urine Bilirubin Negative Urine Urobilinogen 0.2 Ur Leukocyte Esterase Negative Urine RBC None Urine WBC None Ur Epithelial Cells 4 - 5 Urine Bacteria Few Urine Other Mucus Urine Opiates Screen Negative Urine Methadone Screen Negative Ur Barbiturates Screen Negative Ur Phencyclidine Scrn Negative Ur Amphetamines Screen Negative U Benzodiazepines Scrn Negative U Oth Cocaine Metabols Negative U Cannabinoids Screen Negative 07/30/18 07/30/18 11:45 12:00 WBC RBC Hgb Hct MCV MCH MCHC RDW Plt Count MPV Gran % Lymph % (Auto) [place] % (Auto) Eos % (Auto) Baso % (Auto) Gran # Lymph # (Auto) [place] # (Auto) Eos # (Auto) Baso # (Auto) PT INR APTT Sodium 140 Potassium 5.1 H Chloride 106 Carbon Dioxide 29 Anion Gap 10 BUN 40 H Creatinine 1.0 Est GFR ( Amer) > 60 Est GFR (Non-Af Amer) > 60 POC Glucose (mg/dL) 104 Random Glucose 112 H Calcium 9.1 Phosphorus Magnesium Total Bilirubin 0.3 AST 59 ALT 37 Alkaline Phosphatase 103 Lactate Dehydrogenase Total Creatine Kinase Troponin I Total Protein 8.6 H Albumin 3.6 Globulin 5.0 Albumin/Globulin Ratio 0.7 L Amylase Lipase Urine Color Urine Appearance Urine pH Ur Specific [place] Urine Protein Urine Glucose (UA) Urine Ketones Urine Blood Urine Nitrate Urine Bilirubin Urine Urobilinogen Ur Leukocyte Esterase Urine RBC Urine WBC Ur Epithelial Cells Urine Bacteria Urine Other Urine Opiates Screen Urine Methadone Screen Ur Barbiturates Screen Ur Phencyclidine Scrn Ur Amphetamines Screen U Benzodiazepines Scrn U Oth Cocaine Metabols U Cannabinoids Screen Assessment & Plan - Assessment and Plan (Free Text) Assessment: 47 yo male known to me from hospitalizations in the distant past with nausea, vomiting, and diarrhea. Patient presented with dehydration. History of HIV with testing confirming this in [facility]3] in Apr 2018. Not on HAART. Known Cocaine use history. Recent Influenza A positive test on 07/18/2018 from ER at [facility]3]. Chest X-ray appears clear and no findi ngs for pneumonia on physical exam. Urine drug screen negative on this hospitalization. Would not start HAART on this patient in hospital. Patient should be started in outpatient setting once showing that he would be compliant with HAART regimen. On Bactrim DS for prophylaxis for PCP pneumonia. Retest for Influenza A. Supportive care Thank you for allowing me to participate in the care of the patient, we will follow with you.
[2018-07-31] MEDS: Tmp-Smz 400 mg-80 mg SS Tab PO SCH ×2 (05:37→13:23)
[2018-07-31 07:07] LABS: BASO # 0.01 K/mm3 (0.0-2.0); BASO % 0.2 % (0.0-3.0); EOS # 0.1 (0.0-0.7); EOS % 1.4 % (1.5-5.0); GRAN # 2.14 (1.4-6.5); GRAN % 50.4 % (50.0-68.0); HEMOGLOBIN 10.1 g/dL (14.0-18.0); LYMPH # 1.8 (1.2-3.4); LYMPH % 41.4 % (22.0-35.0); MEAN CELL VOLUME 81.8 fl (80.0-105.0); MEAN CORPUSCULAR HEMOGLOBIN 24.5 pg (25.0-35.0); MEAN PLATELET VOLUME 9.6 fl (7.0-11.0); MONO # 0.3 (0.1-0.6); MONO % 6.6 % (1.0-6.0); RBC 4.12 10^6/uL (3.5-6.1); RED CELL DISTRIBUTION WIDTH 16.4 % (11.5-14.5); WHITE BLOOD COUNT 4.3 10^3/uL (4.5-11.0)
[2018-07-31 07:48] LABS: ALB/GLOB RATIO 0.7 (1.1-1.8); ALBUMIN 3.5 g/dL (3.0-4.8); ALT/SGPT 33 U/L (7-56); AST/SGOT 48 U/L (17-59); BLOOD UREA NITROGEN 24 mg/dL (7-21); CALCIUM 9.2 mg/dL (8.4-10.5); GFR NON-AFRICAN AMERICAN > 60
--- NOTE | 2018-07-31 13:41 | CP.PCM.DIS ---
Provider - Provider Date of Admission: 07/30/18 04:33 Attending physician: Meeta Hamilton DO Consults: 07/30/18 07:17 Physician Consult Routine Comment: Consulting Provider: Jason Hammond Consulting Physician: Jason Hammond Reason for Consult: Hx HIV, last CD4 51 in 04/201807/30/18 19:36 Transition In Care/Readmission Reduction Routine Comment: Physician Instructions: Reason For Exam: PMH of pneumonia Time Spent in preparation of Discharge (in minutes): 40 Diagnosis - Discharge Diagnosis (1) HIV (human immunodeficiency virus infection) Status: Chronic Priority: High (2) Dehydration Status: Acute Priority: High (3) HTN (hypertension) Status: Chronic Priority: High (4) Pneumonia Status: Acute Priority: High (5) Cocaine abuse Status: Chronic Priority: High Hospital Course - Lab Results Lab Results: Most Recent Lab Values WBC 4.3 10^3/uL (4.5-11.0) L 07/31/18 06:35 RBC 4.12 10^6/uL (3.5-6.1) 07/31/18 06:35 Hgb 10.1 g/dL (14.0-18.0) L 07/31/18 06:35 Hct 33.7 % (42.0-52.0) L 07/31/18 06:35 MCV 81.8 fl (80.0-105.0) 07/31/18 06:35 MCH 24.5 pg (25.0-35.0) L 07/31/18 06:35 MCHC 30.0 g/dl (31.0-37.0) L 07/31/18 06:35 RDW 16.4 % (11.5-14.5) H 07/31/18 06:35 Plt Count 223 10^3/uL (120.0-450.0) 07/31/18 06:35 MPV 9.6 fl (7.0-11.0) 07/31/18 06:35 Gran % 50.4 % (50.0-68.0) 07/31/18 06:35 Lymph % (Auto) 41.4 % (22.0-35.0) H 07/31/18 06:35 [place] % (Auto) 6.6 % (1.0-6.0) H 07/31/18 06:35 Eos % (Auto) 1.4 % (1.5-5.0) L 07/31/18 06:35 Baso % (Auto) 0.2 % (0.0-3.0) 07/31/18 06:35 Gran # 2.14 (1.4-6.5) 07/31/18 06:35 Lymph # (Auto) 1.8 (1.2-3.4) 07/31/18 06:35 [place] # (Auto) 0.3 (0.1-0.6) 07/31/18 06:35 Eos # (Auto) 0.1 (0.0-0.7) 07/31/18 06:35 Baso # (Auto) 0.01 K/mm3 (0.0-2.0) 07/31/18 06:35 PT 11.5 SECONDS (9.4-12.5) 07/30/18 03:42 INR 1.01 07/30/18 03:42 APTT 31.9 Seconds (25.1-36.5) 07/31/18 06:35 Sodium 141 mmol/L (132-148) 07/31/18 06:35 Potassium 4.7 mmol/L (3.6-5.0) 07/31/18 06:35 Chloride 109 mmol/L (98-107) H 07/31/18 06:35 Carbon Dioxide 26 mmol/L (21-33) 07/31/18 06:35 Anion Gap 10 (10-20) 07/31/18 06:35 BUN 24 mg/dL (7-21) H 07/31/18 06:35 Creatinine 0.9 mg/dl (0.8-1.5) 07/31/18 06:35 Est GFR ( Amer) > 60 07/31/18 06:35 Est GFR (Non-Af Amer) > 60 07/31/18 06:35 POC Glucose (mg/dL) 104 mg/dL (65-110) 07/30/18 11:45 Random Glucose 108 mg/dL (70-110) 07/31/18 06:35 Calcium 9.2 mg/dL (8.4-10.5) 07/31/18 06:35 Phosphorus 4.7 mg/dL (2.5-4.5) H 07/30/18 03:42 Magnesium 2.2 mg/dL (1.7-2.2) 07/30/18 03:42 Total Bilirubin 0.3 mg/dL (0.2-1.3) 07/31/18 06:35 AST 48 U/L (17-59) 07/31/18 06:35 ALT 33 U/L (7-56) 07/31/18 06:35 Alkaline Phosphatase 106 U/L (38-126) 07/31/18 06:35 Lactate Dehydrogenase 381 U/L (333-699) 07/30/18 03:42 Total Creatine Kinase 62 U/L (35-230) 07/30/18 03:42 Troponin I 0.01 ng/mL 07/30/18 03:42 Total Protein 8.5 g/dL (5.8-8.3) H 07/31/18 06:35 Albumin 3.5 g/dL (3.0-4.8) 07/31/18 06:35 Globulin 5.0 gm/dL 07/31/18 06:35 Albumin/Globulin Ratio 0.7 (1.1-1.8) L 07/31/18 06:35 Amylase 105 U/L (35-125) 07/30/18 03:42 Lipase 430 U/L (23-300) H 07/30/18 03:42 Urine Color Yellow (YELLOW) 07/30/18 06:15 Urine Appearance Clear (CLEAR) 07/30/18 06:15 Urine pH 6.5 (4.7-8.0) 07/30/18 06:15 Ur Specific [place] 1.020 (1.005-1.035) 07/30/18 06:15 Urine Protein 30 mg/dL (<30 mg/dL) H 07/30/18 06:15 Urine Glucose (UA) Negative mg/dL (NEGATIVE) 07/30/18 06:15 Urine Ketones Negative mg/dL (NEGATIVE) 07/30/18 06:15 Urine Blood Negative (NEGATIVE) 07/30/18 06:15 Urine Nitrate Negative (NEGATIVE) 07/30/18 06:15 Urine Bilirubin Negative (NEGATIVE) 07/30/18 06:15 Urine Urobilinogen 0.2 E.U./dL (<1 E.U./dL) 07/30/18 06:15 Ur Leukocyte Esterase Negative [place]/uL (NEGATIVE) 07/30/18 06:15 Urine RBC None /hpf (0-2) 07/30/18 06:15 Urine WBC None /hpf (0-6) 07/30/18 06:15 Ur Epithelial Cells 4 - 5 /hpf (0-5) 07/30/18 06:15 Urine Bacteria Few /hpf (NONE) 07/30/18 06:15 Urine Other Mucus /hpf 07/30/18 06:15 Urine Opiates Screen Negative (NEGATIVE) 07/30/18 05:45 Urine Methadone Screen Negative (NEGATIVE) 07/30/18 05:45 Ur Barbiturates Screen Negative (NEGATIVE) 07/30/18 05:45 Ur Phencyclidine Scrn Negative (NEGATIVE) 07/30/18 05:45 Ur Amphetamines Screen Negative (NEGATIVE) 07/30/18 05:45 U Benzodiazepines Scrn Negative (NEGATIVE) 07/30/18 05:45 U Oth Cocaine Metabols Negative (NEGATIVE) 07/30/18 05:45 U Cannabinoids Screen Negative (NEGATIVE) 07/30/18 05:45 Influenza Typ A,B (EIA) Negative for flu a/b (NEGATIVE) 07/31/18 11:00 - Hospital Course Hospital Course: Upon Arrival Pt is a 47 yo male with a PMH of HTN and HIV who presented to [facility] ED with complaints of nausea and vomiting. Denies hematemesis, dark coffee ground emesis, bloody bowel movements, multiple day history of GI losses. He was evaluated at [facility]. Patient was given hydration and discharged from the ED. Hospitalization Pt was treated VIF for his dehydration. Pt last recorded CD4 count was 51, after speaking with Dr Hammond from infectious disease, he recommended ppx Bactrim on MWF. Pt was tested for influenza which was negative. Discharge Pt advised to follow up with his primary care physician within 3-5 days. Pt adv ised to take Bactrim on MWF for ppx. Pt encouraged to refrain from cocaine use. Pt advised to continue to see his infectious disease physician Dr Majano. - Date & Time of H&P Date of H&P: 07/31/18 Time of H&P: 07:00 Discharge Exam - Head Exam Head Exam: ATRAUMATIC, NORMOCEPHALIC - Eye Exam Eye Exam: EOMI - ENT Exam ENT Exam: Mucous Membranes Moist - Respiratory Exam Respiratory Exam: NORMAL BREATHING PATTERN, UNREMARKABLE. absent: Accessory Muscle Use, Respiratory Distress - Cardiovascular Exam Cardiovascular Exam: RRR, +S1, +S2. absent: Diastolic murmur, Systolic Murmur - GI/Abdominal Exam GI & Abdominal Exam: Normal Bowel Sounds, Unremarkable. absent: Tenderness - Extremities Exam Extremities exam: full ROM, pedal pulses present - Neurological Exam Neurological exam: Alert, Oriented x3 - Psychiatric Exam Psychiatric exam: Normal Affect, Normal Mood - Skin Skin Exam: Dry, Intact, Warm Discharge Plan - Discharge Medications Prescriptions: Aspirin [Aspirin Chewable] 81 mg PO DAILY #30 chew Sulfamethoxazole/Trimethoprim [Bactrim DS 800 mg-160 mg] 1 tab PO MWF #12 tab - Follow Up Plan Condition: GOOD Disposition: HOME/ ROUTINE Instructions: Cocaine Use Disorder, Drug Abuse and Drug Addiction (DC), HIV/AIDS (DC), Coronary Heart Disease (DC) Additional Instructions: 1. Please follow up with Dr. Bustamante at the [facility] in this hospital. You have been given an appointment on August 06, 3:30 pm. Please arrive at least 30 minutes early to fill out paperwork. 2. Please take your Bactrim to help prevent the risk of infections. Please fill your prescription and take as prescribed. Please get any refills needed from your primary care doctor. 3. Due to your history of heart disease/damage, you are being given a prescription for aspirin 81mg daily. Please take as prescribed. 4. You are advised to continue following with an infectious disease specialist, Dr. Majano. A referral has been provided. 5. If your symptoms return, please go to the nearest emergency department as soon as possible Referrals: [facility] [Outside] - 08/06/18 3:30 pm Joshua Majano MD [Staff Provider] -
[2018-07-31 15:22] VITALS: BP 122/74; PULSE 87; TEMP 98; O2SAT 97
--- NOTE | 2018-07-31 17:57 | CP.PCM.PN ---
Subjective - Date & Time of Evaluation Date of Evaluation: 07/31/18 Time of Evaluation: 16:30 - Subjective Subjective: Infectious Diseae Consultation: July 31, 2018 47 yo male with PMHx of HTN and HIV. The patient presented with nausea, vomiting, and diarrhea. He was recently diagnosed with Influenza A. HIV diagnosis is relatively new. Unclear if the patient received treatment for Influenza. Chest X-ray with no acute disease. He has had numerous visits to the ER at [facility]. Urine Drug Screen negative. Constantly changes his story regarding his outpatient care. Objective - Vital Signs/Intake and Output Vital Signs (last 24 hours): Temp Pulse Resp BP Pulse Ox 98 F 87 20 122/74 97 07/31/18 14:00 07/31/18 14:00 07/31/18 14:00 07/31/18 14:00 07/31/18 14:00 - Medications Medications: Current Medications Aspirin (Aspirin Chewable) 81 mg PO DAILY [facility] Last Admin: 07/31/18 09:22 Dose: 81 mg Famotidine (Pepcid) 40 mg PO HS [facility] Last Admin: 07/30/18 21:36 Dose: 40 mg Heparin Sodium (Porcine) (Heparin) 5,000 units SC Q8 [facility]; Protocol Last Admin: 07/31/18 13:23 Dose: Not Given Sodium Chloride (Sodium Chloride 0.9%) 1,000 mls @ 100 mls/hr IV .Q10H [facility] Last Admin: 07/31/18 01:15 Dose: 100 mls/hr Ondansetron HCl (Zofran Inj) 4 mg IVP Q6H PRN PRN Reason: Nausea/Vomiting Trimethoprim/Sulfamethoxazole (Bactrim Ss Tab) 1 tab PO Q8 [facility]; Protocol Last Admin: 07/31/18 13:23 Dose: 1 tab - Labs Labs: 07/31/18 06:35 07/31/18 06:35 PT 11.5 SECONDS (9.4-12.5) 07/30/18 03:42 INR 1.01 07/30/18 03:42 APTT 31.9 Seconds (25.1-36.5) 07/31/18 06:35 - Constitutional Appears: Non-toxic, No Acute Distress, Chronically Ill - Head Exam Head Exam: ATRAUMATIC, NORMOCEPHALIC - Eye Exam Eye Exam: EOMI, PERRL Pupil Exam: NORMAL ACCOMODATION, PERRL - ENT Exam ENT Exam: Mucous Membranes Moist, Normal External Ear Exam, TM's Normal Bilate rally - Neck Exam Neck Exam: Full ROM, Normal Inspection - Respiratory Exam Respiratory Exam: Clear to Ausculation Bilateral, NORMAL BREATHING PATTERN. absent: Rales, Rhonchi, Wheezes - Cardiovascular Exam Cardiovascular Exam: REGULAR RHYTHM, RRR, +S1, +S2 - GI/Abdominal Exam GI & Abdominal Exam: Soft, Normal Bowel Sounds. absent: Distended, Tenderness - Extremities Exam Extremities Exam: Full ROM, Normal Inspection - Neurological Exam Neurological Exam: Alert, Awake, CN II-XII Intact, Oriented x3 - Psychiatric Exam Psychiatric exam: Normal Affect, Normal Mood - Skin Skin Exam: Intact, Normal Color Assessment and Plan - Assessment and Plan (Free Text) Assessment: 47 yo male known to me from hospitalizations in the distant past with nausea, vomiting, and diarrhea. Patient presented with dehydration. History of HIV with testing confirming this in [facility] in Apr 2018. Not on HAART. Known Cocaine use history. Recent Influenza A positive test on 07/18/2018 from ER at [facility]. Chest X-ray appears clear and no findings for pneumonia on physical exam. Urine drug screen negative on this hospitalization. Would not start HAART on this patient in hospital. Patient should be started in outpatient setting once showing that he would be compliant with HAART regimen. On Bactrim DS for prophylaxis for PCP pneumonia. Retest for Influenza A... negative test now. Supportive care. Should follow as outpatient for HIV care. Thank you for allowing me to participate in the care of the patient, we will follow with you.
== END 2018-07-31 19:01 | disposition home or self-care (01) ==
LOC: ED 02:17 → ERH 04:33 → 5RNO 07:11
PROVIDERS: ADMIT Hospitalist; ATTEND Hospitalist
DX: E86.0 Dehydration (principal); B20 Human immunodeficiency virus [HIV] disease; F14.10 Cocaine abuse, uncomplicated; G40.909 Epilepsy, unspecified, not intractable, without status epilepticus; I11.0 Hypertensive heart disease with heart failure; I50.9 Heart failure, unspecified; I25.10 Atherosclerotic heart disease of native coronary artery without angina pectoris; Z87.01 Personal history of pneumonia (recurrent)
CPT/HCPCS: 36415; 71045; 80053; 80324; 80345; 80346; 80349; 80353; 80358; 80361; 81001; 82150; 82550; 82948; 83615; 83690; 83735; 83992; 84100; 84484; 85025; 85610; 85730; 87804; 93005; 96372; 99285; G0378; J1644; J7030

== ENCOUNTER 2018-08-12 02:32 | Emergency (ER) | payer BC, MEDICAID ==
[2018-08-12 02:44] VITALS: BMI 23.7
[2018-08-12 02:48] VITALS: TEMP 98
--- NOTE | 2018-08-12 03:21 | ED PDOC ---
Arrival/HPI - General Chief Complaint: Lower Extremity Problem/Injury Time Seen by Provider: 08/12/18 02:33 Historian: Patient - History of Present Illness Narrative History of Present Illness (Text): 08/12/18 03:17 47 year old male, whose past medical history includes Hypertension and HIV, presents to the emergency department by EMS for chronic lower leg swelling, for 20 years. In the emergency department, patient states he is no longer here for his leg swelling, but wants his ribs checked. Patient states he broke his ribs a few weeks ago. Patient was seen at [facility] yesterday, and had CT chest done, which showed only old fractures. Patient denies any pain to his ribs or any other area. Patient denies any fevers, chills, headache, dizziness, chest pain, shortness of breath, cough, abdominal pain, nausea, vomiting, diarrhea, back pain, neck pain, or any other complaint. Time/Duration: > week (rib injury), Other (leg swelling 20 years ) Symptom Onset: Sudden Symptom Course: Unchanged Activities at Onset: Light Past Medical History - Provider Review Nursing Documentation Reviewed: Yes - Infectious Disease Hx of Infectious Diseases: None - Tetanus Immunization Tetanus Immunization: Unknown - Cardiac Hx Cardiac Disorders: Yes Hx Congestive Heart Failure: Yes Hx Hypertension: Yes Hx Peripheral Edema: Yes - Pulmonary Hx Respiratory Disorders: Yes Hx Bronchitis: Yes Hx Pneumonia: Yes - Neurological Hx Neurological Disorder: Yes Hx Seizures: Yes - HEENT Hx HEENT Disorder: No - Renal Hx Renal Disorder: No - Endocrine/Metabolic Hx Endocrine Disorders: No - Hematological/Oncological Hx Blood Disorders: Yes Hx Anemia: Yes (blood transfusion s/p trauma at age 18) - Integumentary Hx Dermatological Disorder: Yes Hx Cellulitis: Yes - Musculoskeletal/Rheumatological Hx Musculoskeletal Disorders: Yes Hx Fractures: Yes (left ankle fx twice, r great toe fx, r 5th toe fx) - Gastrointestinal Hx Gastrointestinal Disorders: Yes Hx Diverticulitis: Yes - Genitourinary/Gynecological Hx Genitourinary Disorders: No - Psychiatric Hx Depression: No Hx Substance Use: Yes (Cocaine/marijuana in the past.) - Past Surgical History Past Surgical History: Non-Contributing - Surgical History Hx Coronary Stent: Yes - Anesthesia Hx Anesthesia: Yes Hx Anesthesia Reactions: No Hx Malignant Hyperthermia: No - Suicidal Assessment Feels Threatened In Home Enviroment: No Family/Social History - Physician Review Nursing Documentation Reviewed: Yes Family/Social History: No Known Family HX Smoking Status: Never Smoked Hx Alcohol Use: Yes Hx Substance Use: Yes (Cocaine/marijuana in the past.) Hx Substance Use Treatment: No Allergies/Home Meds Allergies/Adverse Reactions: Allergies No Known Allergies Allergy (Verified 08/12/18 02:44) Review of Systems - Physician Review All systems were reviewed & negative as marked: Yes - Review of Systems Constitutional: absent: Fevers, Night Sweats Respiratory: absent: SOB, Cough Cardiovascular: absent: Chest Pain Gastrointestinal: absent: Abdominal Pain, Diarrhea, Nausea, Vomiting Musculoskeletal: absent: Back Pain, Neck Pain Neurological: absent: Headache, Dizziness Physical Exam Vital Signs Reviewed: Yes Vital Signs Temp Pulse Resp Pulse Ox 08/12/18 02:47 98.0 F 80 18 98 Temperature: Afebrile Blood Pressure: Normal Pulse: Regular Respiratory Rate: Normal Appearance: Positive for: Well-Appearing, Non-Toxic, Comfortable Pain Distress: None Mental Status: Positive for: Alert and Oriented X 3 - Systems Exam Head: Present: Atraumatic, Normocephalic Pupils: Present: PERRL Extroacular Muscles: Present: EOMI Conjunctiva: Present: Normal Mouth: Present: Moist Mucous Membranes Neck: Present: Normal Range of Motion Respiratory/Chest: Present: Clear to Auscultation, Good Air Exchange. No: Respiratory Distress, Accessory Muscle Use Cardiovascular: Present: Regular Rate and Rhythm, Normal S1, S2. No: Murmurs Abdomen: No: Tenderness, Distention, Peritoneal Signs Back: Present: Normal Inspection Upper Extremity: Present: Normal Inspection. No: Cyanosis, Edema Lower Extremity: Present: Edema (+1 chronic bilaterally leg edema) Neurological: Present: GCS=15, CN II-XII Intact, Speech Normal Skin: Present: Warm, Dry, Normal Color. No: Rashes Psychiatric: Present: Alert, Oriented x 3, Normal Insight, Normal Concentration - Scribe Statement The provider has reviewed the documentation as recorded by the Humzaibbob Roblero Provider Scribe Attestation: All medical record entries made by the Scribe were at my direction and pers onally dictated by me. I have reviewed the chart and agree that the record accurately reflects my personal performance of the history, physical exam, medical decision making, and the department course for this patient. I have also personally directed, reviewed, and agree with the discharge instructions and disposition. Disposition/Present on Arrival - Present on Arrival Any Indicators Present on Arrival: No History of DVT/PE: No History of Uncontrolled Diabetes: No Urinary Catheter: No History of Decub. Ulcer: No History Surgical Site Infection Following: None - Disposition Have Diagnosis and Disposition been Completed?: Yes Diagnosis: Rib fractures, Edema leg Disposition: HOME/ ROUTINE Disposition Time: 06:30 Condition: GOOD Discharge Instructions (ExitCare): Rib Fractures in Adults, Dependent Edema (DC) Referrals: Melvi Bustaamnte MD [Medical Doctor] - Follow up with primary Forms: [employer] ([place]izen [place])
[2018-08-12 05:35] VITALS: O2SAT 99
[2018-08-12 06:18] VITALS: BP 116/78; PULSE 68; RESP 14
== END 2018-08-12 06:18 | disposition home or self-care (01) ==
LOC: ED 02:32
DX: S22.39XA Fracture of one rib, unspecified side, initial encounter for closed fracture (principal); X58.XXXA Exposure to other specified factors, initial encounter; R60.0 Localized edema; I10 Essential (primary) hypertension; Z21 Asymptomatic human immunodeficiency virus [HIV] infection status

== ENCOUNTER 2018-08-13 02:31 | Emergency (ER) | payer MEDICAID ==
[2018-08-13 02:31] VITALS: BMI 23.7
[2018-08-13 02:41] VITALS: TEMP 97.6; O2SAT 97
--- NOTE | 2018-08-13 02:58 | ED PDOC ---
Arrival/HPI - General Chief Complaint: Rib Injury Time Seen by Provider: 08/13/18 02:54 Historian: Patient - History of Present Illness Narrative History of Present Illness (Text): 08/13/18 02:55 Michael Hines is a 47 year old male, whose past medical history includes hypertension and HIV, who presents to the Emergency department complaining of chronic rib pain. Patient was seen in the Emergency department yesterday for similar complaint and discharged home. Patient also seen at [facility] a few days prior where he underwent a full work-up, which was negative. Patient denies any fever, chills, chest pain, shortness of breath, nausea, vomiting, diarrhea, urinary symptoms, back pain, neck pain, headache, dizziness, or any other complaints. Symptom Onset: Gradual Symptom Course: Unchanged Activities at Onset: Light Context: Home Past Medical History - Provider Review Nursing Documentation Reviewed: Yes - Infectious Disease Hx of Infectious Diseases: None - Tetanus Immunization Tetanus Immunization: Unknown - Cardiac Hx Cardiac Disorders: Yes Hx Congestive Heart Failure: Yes Hx Hypertension: Yes Hx Peripheral Edema: Yes - Pulmonary Hx Respiratory Disorders: Yes Hx Bronchitis: Yes Hx Pneumonia: Yes - Neurological Hx Neurological Disorder: Yes Hx Seizures: Yes - HEENT Hx HEENT Disorder: No - Renal Hx Renal Disorder: No - Endocrine/Metabolic Hx Endocrine Disorders: No - Hematological/Oncological Hx Blood Disorders: Yes Hx Anemia: Yes (blood transfusion s/p trauma at age 18) - Integumentary Hx Dermatological Disorder: Yes Hx Cellulitis: Yes - Musculoskeletal/Rheumatological Hx Musculoskeletal Disorders: Yes Hx Fractures: Yes (left ankle fx twice, r great toe fx, r 5th toe fx) - Gastrointestinal Hx Gastrointestinal Disorders: Yes Hx Diverticulitis: Yes - Genitourinary/Gynecological Hx Genitourinary Disorders: No - Psychiatric Hx Depression: No Hx Substance Use: Yes (Cocaine/marijuana in the past.) - Past Surgical History Past Surgical History: Non-Contributing - Surgical History Hx Coronary Stent: Yes - Anesthesia Hx Anesthesia: Yes Hx Anesthesia Reactions: No Hx Malignant Hyperthermia: No - Suicidal Assessment Feels Threatened In Home Enviroment: No Family/Social History - Physician Review Nursing Documentation Reviewed: Yes Family/Social History: Unknown Family HX Smoking Status: Never Smoked Hx Alcohol Use: Yes Hx Substance Use: Yes (Cocaine/marijuana in the past.) Hx Substance Use Treatment: No Allergies/Home Meds Allergies/Adverse Reactions: Allergies No Known Allergies Allergy (Verified 08/13/18 02:35) Home Medications: Home Meds Medication Instructions Recorded Confirmed No Known Home Med 08/13/18 08/13/18 Review of Systems - Physician Review All systems were reviewed & negative as marked: Yes - Review of Systems Constitutional: Normal. absent: Fevers Eyes: Normal ENT: Normal Respiratory: Normal. absent: SOB, Cough Cardiovascular: Normal. absent: Chest Pain Gastrointestinal: Normal. absent: Abdominal Pain, Diarrhea, Nausea, Vomiting Genitourinary Male: Normal. absent: Dysuria, Frequency, Hematuria, Urinary Output Changes Musculoskeletal: Other (+rib pain). absent: Back Pain, Neck Pain Skin: Normal. absent: Rash Neurological: Normal. absent: Headache, Dizziness Endocrine: Normal Hemo/Lymphatic: Normal Psychiatric: Normal Physical Exam Vital Signs Reviewed: Yes Vital Signs Temp Pulse Resp BP Pulse Ox 08/13/18 02:39 97.6 F 100 H 18 127/89 97 Temperature: Afebrile Blood Pressure: Normal Pulse: Regular Respiratory Rate: Normal Appearance: Positive for: Well-Appearing, Non-Toxic, Comfortable Pain Distress: None Mental Status: Positive for: Alert and Oriented X 3 - Systems Exam Head: Present: Atraumatic, Normocephalic Pupils: Present: PERRL Extroacular Muscles: Present: EOMI Conjunctiva: Present: Normal Mouth: Present: Moist Mucous Membranes Neck: Present: Normal Range of Motion Respiratory/Chest: Present: Clear to Auscultation, Good Air Exchange. No: Respiratory Distress, Accessory Muscle Use Cardiovascular: Present: Regular Rate and Rhythm, Normal S1, S2. No: Murmurs Abdomen: No: Tenderness, Distention, Peritoneal Signs Back: Present: Normal Inspection Upper Extremity: Present: Normal Inspection. No: Cyanosis, Edema Lower Extremity: Present: Normal Inspection. No: Edema Neurological: Present: GCS=15, CN II-XII Intact, Speech Normal Skin: Present: Warm, Dry, Normal Color. No: Rashes Psychiatric: Present: Alert, Oriented x 3, Normal Insight, Normal Concentration Medical Decision Making ED Course and Treatment: 08/13/18 02:55 Impression: 47 year old male complaining of chronic rib pain. Plan: -- Reassess and disposition Prior Visits: Notes and results from previous visits were reviewed. Progress Notes: - Scribe Statement The provider has reviewed the documentation as recorded by the Petra Funez Provider Scribe Attestation: All medical record entries made by the Humzaibbob were at my direction and personally dictated by me. I have reviewed the chart and agree that the record accurately reflects my personal performance of the history, physical exam, medical decision making, and the department course for this patient. I have also personally directed, reviewed, and agree with the discharge instructions and disposition. Disposition/Present on Arrival - Present on Arrival Any Indicators Present on Arrival: No History of DVT/PE: No History of Uncontrolled Diabetes: No Urinary Catheter: No History of Decub. Ulcer: No History Surgical Site Infection Following: None - Disposition Have Diagnosis and Disposition been Completed?: Yes Diagnosis: Rib fracture Disposition: HOME/ ROUTINE Disposition Time: 03:45 Condition: GOOD Discharge Instructions (ExitCare): Rib Fractures in Adults Forms: [facility] ([place])
[2018-08-13 03:45] VITALS: BP 136/74; PULSE 86; RESP 15
== END 2018-08-13 03:44 | disposition home or self-care (01) ==
LOC: ED 02:31
DX: S22.39XA Fracture of one rib, unspecified side, initial encounter for closed fracture (principal); X58.XXXA Exposure to other specified factors, initial encounter; Z21 Asymptomatic human immunodeficiency virus [HIV] infection status; I10 Essential (primary) hypertension; I50.9 Heart failure, unspecified